=== PATIENT | female | born 1940 | race Caucasian/White ===

== ENCOUNTER 2019-11-17 19:49 | Emergency (ER) | payer MEDICARE, BC ==
[2019-11-17 20:02] VITALS: BP 139/84; PULSE 82
[2019-11-17] MEDS ORDERED: Sodium Chloride 0.9% 10 ML Syringe FLUSH PRN (20:10)
[2019-11-17] MEDS ORDERED: Ondansetron 4 MG/2 ML SDV IVPUSH ONE (20:10)
[2019-11-17] MEDS ORDERED: HYDROmorphone 0.5 MG/0.5 ML Syringe IVPUSH ONE ×2 (20:12→21:09)
[2019-11-17] MEDS ORDERED: Sodium Chloride 0.9% 1,000 ML IV SCH (20:15)
--- NOTE | 2019-11-17 20:16 | EDM.PDOC ---
ED HPI GENERAL MEDICAL PROBLEM - General Chief Complaint: Abdominal Pain Stated Complaint: RIGHT SIDE AND LOWER ABDOMINAL PAIN Time Seen by Provider: 11/17/19 20:00 Source of Information: Reports: Patient History Limitations: Reports: No Limitations - History of Present Illness INITIAL COMMENTS - FREE TEXT/NARRATIVE: The patient presents with lower abdominal pain. This started a few hours ago. She has nausea. She has no fever, chills, cough, congestion, chest pain, shortness of breath, diarrhea or dysuria. She does have a know prolapsed uterus. She has not had surgery yet. The pain is not in the pelvic area. She still has her appendix. Onset: Gradual Duration: Hour(s): Location: Reports: Abdomen Quality: Reports: Sharp Severity: Moderate Improves with: Reports: None Worsens with: Reports: None Associated Symptoms: Reports: Nausea/Vomiting. Denies: Chest Pain, Cough, Fever/Chills, Headaches, Shortness of Breath abd Pain Score (Numeric/FACES): 10 - Related Data Allergies Allergy/AdvReac Type Severity Reaction Status Date / Time azithromycin [From Zithromax] Allergy Hives Verified 11/17/19 20:02 Iodine and Iodide Containing Allergy Hives Verified 11/17/19 20:02 Produc levofloxacin [From Levaquin] Allergy Facial Verified 11/17/19 20:02 Swelling Penicillins Allergy Facial Verified 11/17/19 20:02 Swelling Home Meds: Home Meds Aspirin 81 mg PO DAILY 08/27/15 [History] Diltiazem [Cardizem CD] 240 mg PO DAILY 08/27/15 [History] Docusate Sodium 100 mg PO DAILY 08/27/15 [History] Hydrochlorothiazide 12.5 mg PO DAILY 08/27/15 [History] Levothyroxine [Synthroid] 50 mcg PO DAILY 08/27/15 [History] Lisinopril 5 mg PO DAILY 08/27/15 [History] Metoprolol Succinate [Toprol XL] 25 mg PO DAILY 08/27/15 [History] Pravastatin Sodium [Pravastatin (Pravachol)] 20 mg PO DAILY 08/27/15 [History] Warfarin [Coumadin] 2 mg PO ASDIRECTED 08/27/15 [History] metFORMIN [Glucophage] 500 mg PO BID 08/27/15 [History] Amoxicillin/Clavulanate K [Augmentin 875-125 MG] 1 tab PO BID #20 tablet 11/17/19 [Rx] Calcium Carbonate/Vitamin D3 [Calcium 600 + D3 Softgel] 2 each PO DAILY 11/17/19 [History] Magnesium Chloride [Mag Delay] 64 mg PO DAILY 11/17/19 [History] Multivit,Calc,Mins/Iron/Folic [Thera-M] 1 each PO DAILY 11/17/19 [History] Ubidecarenone [Co Q-10] 100 mg PO DAILY 11/17/19 [History] Past Medical History HEENT History: Reports: Epistaxis, Impaired Vision Other HEENT History: glasses Cardiovascular History: Reports: Afib, Hypertension Other Cardiovascular History: Hx of DVT Gastrointestinal History: Reports: Hemorrhoids [employer] History: Reports: Other (See Below) Other [employer] History: vaginal prolapse Musculoskeletal History: Reports: Arthritis, Osteoarthritis, Osteoporosis Endocrine/Metabolic History: Reports: Hyperthyroidism - Infectious Disease History Infectious Disease History: Reports: Chicken Pox, Shingles - Past Surgical History HEENT Surgical History: Reports: Adenoidectomy, Cataract Surgery, Tonsillectomy Other GI Surgeries/Procedures: charli bladder surgery Social & Family History - Family History Family Medical History: Noncontributory - Tobacco Use Smoking Status *Q: Never Smoker - Recreational Drug Use Recreational Drug Use: No ED ROS GENERAL - Review of Systems Review Of Systems: See Below Constitutional: Reports: No Symptoms HEENT: Reports: No Symptoms Respiratory: Reports: No Symptoms Cardiovascular: Reports: No Symptoms Endocrine: Reports: No Symptoms GI/Abdominal: Reports: Abdominal Pain, Nausea. Denies: Diarrhea, Vomiting : Reports: No Symptoms Musculoskeletal: Reports: No Symptoms ED EXAM, GI/ABD - Physical Exam Exam: See Below Exam Limited By: No Limitations General Appearance: Alert, No Apparent Distress Ears: Normal External Exam Nose: Normal Inspection Head: Atraumatic, Normocephalic Neck: Normal Inspection Respiratory/Chest: No Respiratory Distress, Lungs Clear, Normal Breath Sounds Cardiovascular: Regular Rate, Rhythm, No Edema, No Murmur GI/Abdominal Exam: Soft, No Organomegaly, No Mass, Tender (Moderate tenderness to the lower abdomen) Course - Vital Signs Last Recorded V/S: Last Vital Signs Temp 97.0 F 11/17/19 19:59 Pulse 82 11/17/19 19:59 Resp 19 11/17/19 19:59 BP 139/84 11/17/19 19:59 Pulse Ox 97 11/17/19 19:59 - Orders/Labs/Meds Orders: Active Orders 24 hr Category Date Time Status Peripheral IV Care [RC] . DIRECTED Care 11/17/19 20:11 Active Abdomen Pelvis w Cont [CT] Stat Exams 11/17/19 20:10 Taken Sodium Chloride 0.9% [Normal Saline] 1,000 ml Med 11/17/19 20:15 Active IV ASDIRECTED Sodium Chloride 0.9% [Saline Flush] Med 11/17/19 20:10 Active 10 ml FLUSH ASDIRECTED PRN cefTRIAXone [Rocephin] 1 gm Med 11/17/19 23:01 Active Sodium Chloride 0.9% [Normal Saline] 100 ml IV ONETIME ED Antiemetic Medication Reflex [OM.PC] Stat Oth 11/17/19 20:11 Ordered Peripheral IV Insertion Adult [OM.PC] Stat Oth 11/17/19 20:10 Ordered Medication Orders Sodium Chloride (Normal Saline) 1,000 mls @ 125 mls/hr IV ASDIRECTED EUGENIA Last Admin: 11/17/19 20:23 Dose: 125 mls/hr Documented by: PEDRO Ceftriaxone Sodium 1 gm/ (Sodium Chloride) 100 mls @ 200 mls/hr IV ONETIME ONE Stop: 11/17/19 23:30 Last Admin: 11/17/19 23:06 Dose: 200 mls/hr Documented by: HERNAN Sodium Chloride (Saline Flush) 10 ml FLUSH ASDIRECTED PRN PRN Reason: Keep Vein Open Last Admin: 11/17/19 20:25 Dose: 10 ml Documented by: PEDRO Labs: Laboratory Tests 11/17/19 11/17/19 11/17/19 Range/Units 20:26 20:26 22:20 WBC 8.98 (3.98-10.04) K/mm3 RBC 4.39 (3.98-5.22) M/mm3 Hgb 14.3 (11.2-15.7) gm/dl Hct 42.2 (34.1-44.9) % MCV 96.1 H (79.4-94.8) fl MCH 32.6 H (25.6-32.2) pg MCHC 33.9 (32.2-35.5) g/dl RDW Std Deviation 45.6 (36.4-46.3) fL Plt Count 253 (182-369) K/mm3 MPV 9.0 L (9.4-12.3) fl Neut % (Auto) 86.0 H (34.0-71.1) % Lymph % (Auto) 8.7 L (19.3-51.7) % Vance % (Auto) 4.6 L (4.7-12.5) % Eos % (Auto) 0.3 L (0.7-5.8) Baso % (Auto) 0.2 (0.1-1.2) % Neut # (Auto) 7.72 H (1.56-6.13) K/mm3 Lymph # (Auto) 0.78 L (1.18-3.74) K/mm3 Vance # (Auto) 0.41 H (0.24-0.36) K/mm3 Eos # (Auto) 0.03 L (0.04-0.36) K/mm3 Baso # (Auto) 0.02 (0.01-0.08) K/mm3 Manual Slide Review Normal smear Sodium 128 L (136-145) mEq/L Potassium 4.2 (3.5-5.1) mEq/L Chloride 93 L (98-107) mEq/L Carbon Dioxide 23 (21-32) mEq/L Anion Gap 16.2 H (5-15) BUN 18 (7-18) mg/dL Creatinine 1.0 (0.55-1.02) mg/dL Est Cr Clr Drug Dosing 39.70 mL/min Estimated GFR (MDRD) 53 (>60) mL/min BUN/Creatinine Ratio 18.0 (14-18) Glucose 145 H (83-115) mg/dL Calcium 9.1 (8.5-10.1) mg/dL Total Bilirubin 0.6 (0.2-1.0) mg/dL AST 20 (15-37) U/L ALT 18 (14-59) U/L Alkaline Phosphatase 96 (46-116) U/L Total Protein 7.4 (6.4-8.2) g/dl Albumin 3.6 (3.4-5.0) g/dl Globulin 3.8 gm/dL Albumin/Globulin Ratio 1.0 (1-2) Lipase 173 (73-393) U/L Urine Color Yellow (Yellow) Urine Appearance Clear (Clear) Urine pH 5.5 (5.0-8.0) Ur Specific [place] 1.015 (1.005-1.030) Urine Protein Negative (Negative) Urine Glucose (UA) Negative (Negative) Urine Ketones Negative (Negative) Urine Occult Blood Negative (Negative) Urine Nitrite Negative (Negative) Urine Bilirubin Negative (Negative) Urine Urobilinogen 2.0 H (0.2-1.0) Ur Leukocyte Esterase Negative (Negative) Urine RBC Not seen (0-5) /hpf Urine WBC Not seen (0-5) /hpf Ur Squamous Epith Cells 0-5 (0-5) /hpf Urine Bacteria Not seen (FEW) /hpf Urine Mucus Not seen (FEW) /hpf Meds: Medications Generic Name Dose Route Start Last Admin Trade Name Aleksandra PRN Reason Stop Dose Admin Sodium Chloride 1,000 mls @ 125 mls/hr 11/17/19 20:15 11/17/19 20:23 Normal Saline IV 125 mls/hr ASDIRECTED EUGENIA Administration Ceftriaxone Sodium 1 gm/ 100 mls @ 200 mls/hr 11/17/19 23:01 11/17/19 23:06 Sodium Chloride IV 11/17/19 23:30 200 mls/hr ONETIME ONE Administration Sodium Chloride 10 ml 11/17/19 20:10 11/17/19 20:25 Saline Flush FLUSH 10 ml ASDIRECTED PRN Administration Keep Vein Open Discontinued Medications Generic Name Dose Route Start Last Admin Trade Name Aleksandra PRN Reason Stop Dose Admin Diatrizoate Meglum/Diatrizoate Sod 120 ml 11/17/19 21:55 Gastrografin 37% PO 11/17/19 21:56 ONETIME ONE Diphenhydramine HCl 50 mg 11/17/19 20:33 11/17/19 21:06 Benadryl IVPUSH 11/17/19 20:34 50 mg ONETIME ONE Administration Hydromorphone HCl 0.25 mg 11/17/19 20:12 11/17/19 20:24 Dilaudid IVPUSH 11/17/19 20:13 0.25 mg ONETIME ONE Administration Hydromorphone HCl 0.5 mg 11/17/19 21:09 Dilaudid IVPUSH 11/17/19 21:10 ONETIME ONE Iopamidol 100 ml 11/17/19 21:55 Isovue-300 (61%) IVPUSH 11/17/19 21:56 ONETIME ONE Ondansetron HCl 4 mg 11/17/19 20:10 11/17/19 20:24 Zofran IVPUSH 11/17/19 20:11 4 mg ONETIME ONE Administration Sodium Chloride 10 ml 11/17/19 21:56 Saline Flush FLUSH 11/17/19 21:57 ONETIME ONE - Re-Assessments/Exams Free Text/Narrative Re-Assessment/Exam: 11/17/19 20:15 I ordered an IV NS at 125mL/hr, zofran 4mg IV, dilaudid 0.25mg IV, labs, UA and a CT of her abdomen and pelvis. 11/17/19 23:02 Her CBC looks good with a normal WBC. Her Na was a little low at 128. Her anion gap was elevated at 16.2. Her glucose was 145. Her UA shows no UTI. Her CT shows wall thickening along the medial aspect of the cecum with associated inflammation and a small volume of free fluid. There are mildly inflamed and fluid filled loops of small bowel in the right lower quadrant, not pathologically dilated. Findings could reflect infectious or inflammatory colitis but cecal mass is in the differential diagnosis. Recommend correlation with colonoscopy when clinically feasible. 2.9mm cyst arising anteriorly from the body of the pancreas. Further evaluation is probably not necessary given patient's age and high likelihood of benignity. She had an colonoscopy recently. I feel this is more colitis. I will give her some rocephin and get her on some augmentin. Departure - Departure Time of Disposition: 23:15 Disposition: Home, Self-Care 01 Condition: Good Clinical Impression: Colitis - Discharge Information *PRESCRIPTION DRUG MONITORING PROGRAM REVIEWED*: Not Applicable *COPY OF PRESCRIPTION DRUG MONITORING REPORT IN PATIENT MELANI: Not Applicable Prescriptions: Amoxicillin/Clavulanate K [Augmentin 875-125 MG] 1 tab PO BID #20 tablet Referrals: Ryan Park MD [Primary Care Provider] - 1 Week Forms: ED Department Discharge Additional Instructions: Take your medication as prescribed. Take the augmentin 2 times per day for 10 days. Take tylenol every 6 hours as needed for pain. Please return if you are worse. Sepsis Event Note (ED) - Evaluation Sepsis Screening Result: No Definite Risk - Focused Exam Vital Signs: Vital Signs Temp Pulse Resp BP Pulse Ox 11/17/19 19:59 97.0 F 82 19 139/84 97 - My Orders Last 24 Hours: My Active Orders 11/17/19 20:10 Abdomen Pelvis w Cont [CT] Stat Sodium Chloride 0.9% [Saline Flush] 10 ml FLUSH ASDIRECTED PRN Peripheral IV Insertion Adult [OM.PC] Stat 11/17/19 20:11 Peripheral IV Care [RC] . DIRECTED ED Antiemetic Medication Reflex [OM.PC] Stat 11/17/19 20:15 Sodium Chloride 0.9% [Normal Saline] 1,000 ml IV ASDIRECTED 11/17/19 23:01 cefTRIAXone [Rocephin] 1 gm Sodium Chloride 0.9% [Normal Saline] 100 ml IV ONETIME - Assessment/Plan Last 24 Hours: My Active Orders 11/17/19 20:10 Abdomen Pelvis w Cont [CT] Stat Sodium Chloride 0.9% [Saline Flush] 10 ml FLUSH ASDIRECTED PRN Peripheral IV Insertion Adult [OM.PC] Stat 11/17/19 20:11 Peripheral IV Care [RC] . DIRECTED ED Antiemetic Medication Reflex [OM.PC] Stat 11/17/19 20:15 Sodium Chloride 0.9% [Normal Saline] 1,000 ml IV ASDIRECTED 11/17/19 23:01 cefTRIAXone [Rocephin] 1 gm Sodium Chloride 0.9% [Normal Saline] 100 ml IV ONETIME
[2019-11-17] MEDS ORDERED: diphenhydrAMINE 50 MG/ML SDV IVPUSH ONE (20:33)
[2019-11-17] MEDS ORDERED: Iopamidol 612 MG/ML 100 ML Bottle IVPUSH ONE (21:55)
[2019-11-17] MEDS ORDERED: Diatrizoate Meglumine/Diatrizoate Sodium 37% 120 ML Bottle PO ONE (21:55)
[2019-11-17] MEDS ORDERED: Sodium Chloride 0.9% 10 ML Syringe FLUSH ONE (21:56)
[2019-11-17] MEDS ORDERED: cefTRIAXone 1 GM in Sodium Chloride 0.9% 100 ML IV ONE (23:01)
[2019-11-17] MEDS ORDERED: Amoxicillin/Clavulanate K 875-125 MG Tab PO ONE (23:16)
--- NOTE | 2019-11-18 10:51 | CT ---
CT abdomen and pelvis Technique: Multiple axial sections were obtained from above the dome of the diaphragm but below the top of the spleen inferiorly through the pubic symphysis. Intravenous and oral contrast was utilized. Delayed images were obtained through the bladder. Reconstructed coronal and sagittal images were obtained. Findings: Free fluid is seen which appears to be off the tip of the cecum and extending into the pelvis. Appendix is seen and appears to be normal in size. Slight wall enhancement is seen of several distal ileal loops. No bowel dilatation is seen. Soft tissue thickening appears to be present within a portion of the cecum. Mild increased stool is noted within the cecum. Other findings: Atelectasis noted within both lung bases. Liver contains no focal parenchymal abnormality. Visualized portions of the spleen shows no discrete abnormality. Adrenal glands show no nodule. Kidneys show symmetric contrast enhancement without hydronephrosis or mass. Pancreas appears mostly atrophied. Minimal 9 mm cyst is noted within the body of the pancreas which given the patient's age is most likely benign. Surgical clips are noted from prior cholecystectomy. Kidneys showed symmetric contrast enhancement without hydronephrosis or mass. Aorta shows no aneurysm. No retroperitoneal adenopathy or mesenteric abnormalities are seen. Minimal fat-containing umbilical hernia is noted. No pelvic mass or adenopathy is appreciated. Delayed images shows contrast within the distal ureters and within the bladder. Bone window settings shows spondylolisthesis at L5-S1 due to degenerative apophyseal change. Other degenerative change is noted within the spine. No acute osseous finding is seen. Impression: 1. Free fluid within the pelvis and off the inferior cecum. Appendix is normal in size. Minimal inflammatory enhancement of several distal ileal loops. Possible wall thickening within the cecum. Findings may represent a localized inflammatory process within the cecum, difficult to completely exclude cecal mass. Consider colonoscopy to further evaluate. 2. Other findings as noted above. No other acute abnormalities appreciated. Diagnostic code #9 This report was dictated in MDT I agree with preliminary report from linette, finalized on 11/17/19, 11:12 PM Central Daylight Time
== END 2019-11-17 23:51 | disposition home or self-care (01) ==
LOC: JD.ED 19:49
DX: K52.9 Noninfective gastroenteritis and colitis, unspecified (principal); I10 Essential (primary) hypertension; I48.91 Unspecified atrial fibrillation; M19.90 Unspecified osteoarthritis, unspecified site; E05.90 Thyrotoxicosis, unspecified without thyrotoxic crisis or storm; Z88.0 Allergy status to penicillin; Z88.1 Allergy status to other antibiotic agents; Z88.8 Allergy status to other drugs, medicaments and biological substances; Z79.82 Long term (current) use of aspirin; Z79.899 Other long term (current) drug therapy
CPT/HCPCS: 36415; 74177; 80053; 81001; 83690; 85025; 96361; 96365; 96375; 99284; A9270; J0696; J1170; J1200; J2405; J7030; J7050; Q9963

== ENCOUNTER 2024-05-22 17:01 | Emergency (ER) | payer MEDICARE, BC ==
[2024-05-22] MEDS: Succinylcholine 200 MG/10 ML MDV IV ONE (17:07)
[2024-05-22] MEDS: Etomidate 2 MG/ML 20 ML SDV IVPUSH ONE (17:07)
[2024-05-22] MEDS ORDERED: Sodium Chloride 0.9% 10 ML Syringe FLUSH PRN (17:14)
[2024-05-22] MEDS: propofoL 1,000 MG/100 ML 100 ML IV SCH (17:15)
[2024-05-22] MEDS: Lactated Ringers 1,000 ML IV ONE (17:21)
[2024-05-22 17:30] LABS: BASOPHILS PERCENT AUTO 0.2 % (0.0-1.0); EOSINOPHILS ABSOLUTE AUTO 0.1 K/mm3 (0.0-0.4); EOSINOPHILS PERCENT AUTO 0.6 % (0.0-6.0); HEMATOCRIT 49.6 % (37.0-47.0); HEMOGLOBIN 17.4 gm/dl (12.0-16.0); IMMATURE GRAN ABSOLUTE AUTO 0.05 K/mm3 (0.00-0.05); IMMATURE GRAN PERCENT AUTO 0.4 % (0.0-0.4); LYMPHOCYTES ABSOLUTE AUTO 0.6 K/mm3 (1.0-4.8); LYMPHOCYTES PERCENT AUTO 4.7 % (24.0-44.0); MEAN CORPUSCULAR HEMOGLOBIN 33.4 pg (28.0-32.0); MEAN CORPUSCULAR HGB CONC 35.1 g/dl (32.0-36.0); MEAN CORPUSCULAR VOLUME 95.2 fl (83.0-99.0); MEAN PLATELET VOLUME 9.8 fl (9.4-12.3); MONOCYTES ABSOLUTE AUTO 1.1 K/mm3 (0.0-0.8); MONOCYTES PERCENT AUTO 8.4 % (0.0-8.0); NEUTROPHILS ABSOLUTE AUTO 10.8 K/mm3 (1.8-7.7); NEUTROPHILS PERCENT AUTO 85.7 % (41.0-71.0); PLATELET COUNT,PLT 202 K/mm3 (150-400); RED BLOOD CELL COUNT 5.21 M/mm3 (4.10-5.30); WHITE BLOOD CELL COUNT,WBC 12.56 K/mm3 (3.9-11.3)
[2024-05-22 17:48] LABS: INR 2.55; PROTHROMBIN TIME 25.4 SECONDS (9.7-12.0)
[2024-05-22 17:58] LABS: A/G RATIO 0.6 (1-2); ALBUMIN 3.2 g/dl (3.4-5.0); BUN/CREATININE RATIO 17.5 (14-18); C-REACTIVE PROTEIN 2.23 mg/dL (<0.30); CALCIUM 9.2 mg/dL (8.5-10.1); CREATININE 0.8 mg/dL (0.55-1.02); MAGNESIUM 1.6 mg/dL (1.8-2.4); PROTEIN TOTAL,TP 8.2 g/dl (6.4-8.2)
[2024-05-22 18:09] LABS: O2 SATURATION ARTERIAL 99.7 % (96.0-97.0)
[2024-05-22 18:10] LABS: BASE EXCESS ARTERIAL 3.6 (-2-2.0); BICARBONATE,ARTERIAL 26.7 meq/L (22.0-26.0)
[2024-05-22] MEDS: Iopamidol 612 MG/ML 100 ML Bottle IVPUSH ONE (18:14)
[2024-05-22 18:15] LABS: BARBITURATE SCREEN,URINE NEGATIVE (CUTOFF=200); BENZODIAZEPINES SCREEN,URINE NEGATIVE (CUTOFF=150); BUPRENORPHINE SCREEN,URINE NEGATIVE (CUTOFF=10); METHADONE SCREEN, URINE NEGATIVE (CUTOFF=200); METHAMPHETAMINES SCREEN, URINE NEGATIVE (CUTOFF=500); OXYCODONE SCREEN,URINE NEGATIVE (CUT0FF=100); THC SCREEN,URINE 20 NG/ML NEGATIVE (CUTOFF=50)
[2024-05-22 18:20] LABS: AMPHETAMINES SCREEN, URINE NEGATIVE (CUTOFF=500)
[2024-05-22 18:21] LABS: APPEARANCE,URINE CLEAR (Clear); BILIRUBIN,URINE NEGATIVE (Negative); COLOR,URINE YELLOW (Yellow); GLUCOSE,URINE 3+ (Negative); KETONES,URINE 1+ (Negative); LEUKOCYTE ESTERASE,URINE NEGATIVE (Negative); NITRITE,URINE NEGATIVE (Negative); OCCULT BLOOD,URINE 2+ (Negative); PH,URINE 6.5 (5.0-8.0); PROTEIN,URINE 2+ (Negative); UROBILINOGEN,URINE 0.2 (0.2-1.0)
[2024-05-22 18:23] LABS: BACTERIA,URINE FEW /hpf (FEW); MUCUS,URINE FEW /hpf (FEW); SQUAMOUS EPITHELIAL CELLS,UR 0-5 /hpf (0-5); WBC,URINE 0-5 /hpf (0-5)
[2024-05-22] MEDS: Phytonadione 10 MG in Sodium Chloride 0.9% 50 ML IV ONE (18:44)
[2024-05-22] MEDS: Factor IX Complex Human 500 UNIT VIAL IV ONE (18:44)
== END 2024-05-23 00:01 | disposition expired ==
LOC: JD.ED 17:01
DX: I46.9 Cardiac arrest, cause unspecified (principal); I62.9 Nontraumatic intracranial hemorrhage, unspecified; I10 Essential (primary) hypertension; M19.90 Unspecified osteoarthritis, unspecified site; Z88.0 Allergy status to penicillin; Z88.1 Allergy status to other antibiotic agents; Z91.041 Radiographic dye allergy status; Z88.8 Allergy status to other drugs, medicaments and biological substances; Z79.82 Long term (current) use of aspirin; Z79.84 Long term (current) use of oral hypoglycemic drugs; Z79.01 Long term (current) use of anticoagulants; Z79.890 Hormone replacement therapy; Z79.899 Other long term (current) drug therapy
CPT/HCPCS: 31500; 36415; 36600; 51702; 70450; 71045; 71260; 72125; 74177; 80053; 80143; 80179; 80306; 80307; 81001; 82803; 83605; 83735; 83880; 84484; 85025; 85610; 85730; 86140; 93005; 96365; 96366; 99291; 99292; J0330; J2704; J3490; J7120; Q9967; 93010; 99285